=== PATIENT | male | born 1950 | race Hispanic/Latino ===

== ENCOUNTER 2025-01-28 06:50 | Observation (INO) | payer OTHER ==
[2025-01-26 11:26] LABS: BASOPHILS # (AUTO) 0.08 K/uL (0.00-0.20); BASOPHILS % (AUTO) 0.9 % (0.0-5.0); EOSINOPHILS # (AUTO) 0.52 K/uL (0.00-0.70); EOSINOPHILS % (AUTO) 5.9 % (0.0-8.0); HEMATOCRIT 39.5 % (42-54); IMMATURE GRANULOCYTE ABSOLUTE 0.04 K/uL (0-1); LYMPHOCYTES # (AUTO) 2.1 K/uL (1.0-4.8); LYMPHOCYTES % (AUTO) 23.8 % (21.0-51.0); MEAN CORPUSCULAR HEMOGLOBIN 33.2 pg (27.0-33.0); MEAN CORPUSCULAR HGB CONC 35.4 g/dL (32.0-36.0); MEAN CORPUSCULAR VOLUME 93.6 fL (79-99); MONOCYTES # (AUTO) 0.5 K/uL (0.1-1.0); MONOCYTES % (AUTO) 6.1 % (3.0-13.0); NEUTROPHILS # (AUTO) 5.6 K/uL (1.8-7.7); NEUTROPHILS % (AUTO) 62.8 % (40.0-77.0); PLATELET COUNT (AUTO) 168 K/uL (130-400); RED BLOOD CELL COUNT(AUTO) 4.22 MIL/uL (4.50-6.20); RED CELL DISTRIBUTION WIDTH 12.8 % (11.0-15.5); WHITE BLOOD COUNT (AUTO) 8.9 K/uL (4.8-10.8)
[2025-01-26 11:33] LABS: APPEARANCE,URINE CLEAR (CLEAR); BILIRUBIN,URINE NEGATIVE (NEGATIVE); COLOR,URINE LIGHT-YELLOW (YELLOW); GLUCOSE, URINE (UA) NEGATIVE (NEGATIVE); KETONES,URINE NEGATIVE (NEGATIVE); LEUKOCYTE ESTERASE ,URINE NEGATIVE Leu/uL (NEGATIVE); NITRATE,URINE NEGATIVE (NEGATIVE); OCCULT BLOOD,URINE NEGATIVE (NEGATIVE); PROTEIN,URINE NEGATIVE (NEGATIVE); UROBILINOGEN,URINE 0.2 mg/dL (0.2-1.0)
[2025-01-26 11:35] LABS: ADD UA MICROSCOPIC NO
--- NOTE | 2025-01-26 11:40 | NUR ---
preop bari rt instructed on incentive spirometry
[2025-01-26 11:43] LABS: INR 1.01 (0.85-1.15); PROTHROMBIN TIME 10.7 SEC (9.6-11.6)
[2025-01-26 11:48] LABS: CREATININE 1.6 mg/dL (0.5-1.3); POTASSIUM 4.9 mmol/L (3.5-5.1)
[2025-01-26 12:12] VITALS: BP 213/83; PULSE 50; RESP 18; TEMP 97.2
--- NOTE | 2025-01-27 16:36 | NUR ---
report dr ken informed of bnp results. received instructions to see if ok to proceed with fall internship or flight control tower operator. as per dr pink ok to proceed but to consult him in am. dr ken notified and consult ordered
--- NOTE | 2025-01-27 18:42 | NUR ---
[facility] CM SPOKE TO PT OVER THE PHONE THIS EVENING, INITIAL ASSESSMENT DONE. PATIENT IS INDEPENDENT PRIOR TO SURGERY, LIVES AT HOME WITH HIS . VERIFIED HOME ADDRESS: [facility] [place] [address]. PATIENT ALREADY HAS A WALKER, BEDSIDE COMMODE, SHOWER CHAIR. DENIES ANY OTHER EQUIPMENT/SERVICES. FEELS SAFE TO GO BACK HOME, STILL DRIVE, AND SON ABLE TO ASSIST WITH TRANSPORTATION AND NEEDS NECESSARY. DISCUSSED POSSIBLE HOME W/HOME HEALTH FOR PT VS REHAB AT [facility], PT VERBALIZED HOME HEALTH WAS DISCUSSED, GIVEN IN [employer], PT VERBALIZED HE'LL TALK TO HIS FIRST AND WILL DECIDE AFTER SURGERY. PT DECLINED TO GIVE CONSENT FOR NOW, CM TO FOLLOW UP WITH PT AFTER SURGERY. [facility] HOME W/HH ONCE APPROVED. CM TO CONTINUE TO FOLLOW UP. Addendum: 01/27/25 at 1845 by KEDAR RAMOS LVN CM Amended: Links added.
[2025-01-28] VITALS (34 sets, daily range): BP systolic 116–159; BP diastolic 44–87; PULSE 50–78; RESP 14–19; TEMP 96.3–98.1; O2SAT 96–99
[~2025-01-28] VITALS: Ht 167.6 cm; Wt 75.7 kg
[~2025-01-28 06:50] MED LIST: ASPI-1443 PO; ATOR40TA71 PO; CHOL100040 PO; FOLI0.8T22 PO; LOSA100T59 PO; METF-444 PO
--- NOTE | 2025-01-28 07:40 | NUR ---
SPOKE TO DR. MASTERS REGARDING CONSULT FOR ELEVATED BNP. INFORMED THAT PATIENT IS ASYMPTOMATIC, DENIES SHORTNESS OF BREATH. PER MD, OK TO PROCEED WITH SURGERY. WILL SEE PATIENT LATER TODAY.
[2025-01-28] MEDS ORDERED: ceFAZolin SODIUM 1 GM VIAL ONE (07:42)
[2025-01-28] MEDS ORDERED: VANCOMYCIN 500MG+NS 100ML 100 ML IV ONE (07:42)
[2025-01-28] MEDS ORDERED: TRANEXAMIC ACID 1000MG/10ML ONE (07:42)
[2025-01-28] MEDS: 0.9%NACL 1000ML 1,000 ML IV ONE (07:54)
[2025-01-28] MEDS: ceFAZolin SODIUM 2 GM VIAL ONE (07:55)
[2025-01-28] MEDS ORDERED: FENTanyl CITRate PF 50 MCG/1 ML 2ML VIAL ONE ×3 (10:05→13:20)
[2025-01-28] MEDS ORDERED: MIDAZOLAM HCL 1 MG/ML 2ML VIAL ONE (10:05)
[2025-01-28] MEDS ORDERED: proPOFol 10 MG/ML 20ML VIAL IV ONE (10:06)
[2025-01-28] MEDS ORDERED: rocuRONium bROMide 10MG/1ML 5ML VL ONE (10:06)
[2025-01-28] MEDS ORDERED: phenylEPHRINE HCL 10 MG/ML 1ML VIAL IV ONE (11:20)
[2025-01-28] MEDS: VANCOMYCIN 500MG VIAL IJ ONE (11:35)
[2025-01-28] MEDS: acetaMINOPHEN 100 ML ONE (13:06)
[2025-01-28] MEDS ORDERED: PoTASSium chloRIDE 20MEQ ER 20 MEQ ERTAB PO PRN (13:30)
[2025-01-28] MEDS ORDERED: CYCLOBENZAPRINE HCL 10 MG TABLET PO PRN (13:30)
[2025-01-28] MEDS ORDERED: TEMAZepam 15 MG CAPSULE PO PRN (13:30)
[2025-01-28] MEDS ORDERED: PoTASSium chloRIDE 20MEQ/100ML 100 ML IV PRN (13:30)
[2025-01-28] MEDS ORDERED: ondanSETRON 4MG INJ IVP PRN (13:30)
[2025-01-28] MEDS ORDERED: DiphenhydrAMINE HCL 50 MG/ML VIAL IVP PRN (13:30)
[2025-01-28] MEDS ORDERED: CALCIUM CARB 500MG PO PRN (13:30)
[2025-01-28] MEDS ORDERED: OXYcodONE HCL 5 MG TAB PO PRN (13:30)
[2025-01-28] MEDS ORDERED: PoTASSium chl 10% ELIXIR 20MEQ 20 MEQ/15 ML UDCUP PO PRN (13:30)
[2025-01-28] MEDS ORDERED: FERROUS FUMARATE 324 MG TABLET PO PRN (13:30)
[2025-01-28] MEDS: acetaMINOPHEN 500 MG TABLET PO SCH (13:30)
--- NOTE | 2025-01-28 15:58 | OP ---
Operative Note: DATE OF PROCEDURE: 01/28/25 SURGEON: CHACE CRYSTAL MD OBSTETRICS GYN PHYSICIAN: [Beata Castillo CFA] ANESTHESIA: [General anesthesia plus regional block] ANESTHESIOLOGIST/WARRANTY ADMINISTRATOR: [Aki Blanco CRNA] PREOPERATIVE DIAGNOSIS: [Left knee osteoarthritis, knee flexion contracture] POSTOPERATIVE DIAGNOSIS: [Same] IMPLANTS: [Biomet vanguard. Femur size 70 left PS. Tibia size 79 fixed cruciate. Tibial liner size 79/83 x 10 PS. Patella size 31 x 8 asymmetric.] PROCEDURE: [Left total knee arthroplasty] ESTIMATED BLOOD LOSS: [100 mL] INDICATIONS: [The patient is a 74-year-old male with a history of pain to the left knee secondary to osteoarthritis. The patient also has a flexion contracture. The patient has been treated conservatively and is brought to the operating room for a left total knee arthroplasty. The patient understood the need for the procedure, risks involved, benefits and possible complications and agreed to sign the consent form] DESCRIPTION OF PROCEDURE: [After adequate general anesthesia was achieved and regional block obtained the left lower extremity was prepped and draped in the usual manner previous placement of the tourniquet in the proximal thigh. The extremity was then elevated and exsanguinated with an Esmarch bandage and the tourniquet inflated to 250 mmHg the Esmarch band been then removed. With the knee in flexion a longitudinal incision was then made in the anterior aspect through the skin followed by dissection of the subcutaneous tissue. A bone infusion trocar was then inserted just medial to the tibial tuberosity into the metaphysis and a solution of vancomycin mixed with saline solution was then injected into the bone. A paramedian approach was then made with the Bovie cautery cutting through the quadriceps tendon, medial patellar retinaculum and patellar tendon retinaculum. The retropatellar tendon fat was then excised and the soft tissue elements of the tibia were elevated subperiosteally and retractors were applied medially and laterally . The anterior and posterior cruciate ligaments were resected. With the use of a drill a starting hole was made in the distal femur entering the intramedullary canal and then after removal of the drill an intramedullary guide was inserted with a 5 degree valgus block that touched the distal femur and to this the distal femoral cutting guide was then applied anteriorly and was secured to the distal femur with the use of pins. The intramedullary guide was then removed and with the use of the oscillating saw we proceeded to resect the distal femur removing the fragments and the guide. The femoral sizer was then applied distally and drill holes were made removing the sizer and the 4-in-1 cutting block was then inserted and the anterior, posterior and chamfer cuts were made removing the fragments and the block. The posterior cruciate ligament retractor was then inserted posterior to the tibia and this was brought forward proceeding then to apply the external tibial alignment guide and secured the proximal cutting guide to the tibia with the use of pins. With the use of the oscillating saw the proximal cut to the tibia tibia was made. The bone fragment was removed and the trial tibia plate was chosen. At this point the menisci were removed sharply and with the use of the curved osteotome the posterior osteophytes of the femur were removed. The PS cutting guide was then inserted and the intercondylar cut was made removing the fragment and the guide. The trial components were then inserted at the femur and tibia with a trial tibial liner bringing the knee into extension noticing that the patient had a very stable knee in flexion, extension and with valgus and varus stress. The knee was maintained in extension and the patella was then addressed proceeding to measure its thickness and then with the use of the oscillating saw we removed 8 mm from the articular surface and restored the height with application of a trial component after 3 peg holes were made. The patellofemoral ligament was removed and then the patellofemoral tracking was checked noticing to be normal. At this moment all the components were removed, the tibia after the metaphyseal defect was created and while cement was being mixed on the back table we proceeded to irrigate the joint with antibiotic solution and then cover the entry to the femoral canal with a bone plug. Once the cement was ready we proceeded to apply it first to the tibia surface inserting the final component and then to the femoral surface and inserted the final component removing the excess cement and then applying a trial liner bringing the knee into extension for compression. Then we proceeded to irrigate the patella surface and dried it applying then bone cement and the final patellar component was inserted and was secured with application of a clamp. The joint was irrigated with a warm diluted Betadine solution while the cement dried followed by irrigation with antibiotic solution. The trial liner was removed as well as the patellar clamp and we proceeded then to irrigate the posterior aspect of the joint to remove all the remaining debris and the final tibial liner was inserted and locked against the tibia. The range of motion was checked and noticed to be adequate with full extension and flexion, no laxity in valgus or varus stress and with adequate patellofemoral tracking. The patient had no anterior or posterior drawer. After further irrigation the wound the tourniquet was deflated and hemostasis was obtained. The wound was then closed with approximation of the quadriceps tendon, patellar retinaculum and patellar tendon retinaculum with #1 Vicryl crossed stitches alternating with #1 Ethibond stitches, and closure of the subcutaneous tissue with 2-0 Monocryl inverted stitches and the skin was closed with 3-0 Monocryl subcuticularly. The wound was covered with a suction dressing followed by application of an Marcelino bandage for compression and the drapes were then removed transferring the patient to the hospital bed and taken to recovery room for follow-up by anesthesia. There were no complications during the procedure.] CHACE CRYSTAL MD Jan 28, 2025 15:58
--- NOTE | 2025-01-28 16:12 | NUR ---
PATIENT REPORT RECEIVED PATIENT FROM PACU NURSE DIMAS. PATIENT AAOx3. VITALS STABLE, IN NO APPARENT DISTRESS. PATIENT REPORTS NO PAIN AT THIS TIME. RESPIRATORY THERAPIST NOTIFIED. PHYSICAL THERAPY AWARE.
[2025-01-28] MEDS: INSULIN humuLIN R 100 UNIT/ML 3ML SQ SCH (16:30)
[2025-01-28] MEDS: traMADol HCL 50 MG TABLET PO PRN (17:16)
[2025-01-28] MEDS: ceFAZolin SODIUM 2 GM VIAL IVP SCH (19:19)
[2025-01-28] MEDS: 0.9%NACL 1000ML 1,000 ML IV SCH (19:19)
[2025-01-28] MEDS: metFORmin HCL 500 MG TABLET PO SCH (20:04)
[2025-01-28] MEDS: Vitamin B Complex/Vit C/Folic Acid PO SCH (20:38)
[2025-01-28] MEDS: ASPIRIN 81MG CHEW TAB PO SCH (20:40)
[2025-01-28] MEDS ORDERED: ASPIRIN 81MG CHEW TAB PO SCH (21:00)
[2025-01-28] MEDS ORDERED: NON-FORMULARY MEDICATION 1 EACH (Folic Acid/Vitamin B Comp W-C (Rena-Vite Tablet) 0.8 MG) PO SCH (21:00)
[2025-01-29] VITALS: BP 149/76; PULSE 66; RESP 20; TEMP 97.9
[2025-01-29 03:59] LABS: BASOPHILS # (AUTO) 0.01 K/uL (0.00-0.20); BASOPHILS % (AUTO) 0.1 % (0.0-5.0); HEMATOCRIT 37.1 % (42-54); IMMATURE GRANULOCYTE ABSOLUTE 0.03 K/uL (0-1); LYMPHOCYTES # (AUTO) 0.9 K/uL (1.0-4.8); LYMPHOCYTES % (AUTO) 8.5 % (21.0-51.0); MEAN CORPUSCULAR HEMOGLOBIN 32.9 pg (27.0-33.0); MEAN CORPUSCULAR HGB CONC 34.5 g/dL (32.0-36.0); MEAN CORPUSCULAR VOLUME 95.4 fL (79-99); MONOCYTES # (AUTO) 0.7 K/uL (0.1-1.0); MONOCYTES % (AUTO) 6.5 % (3.0-13.0); NEUTROPHILS # (AUTO) 8.8 K/uL (1.8-7.7); NEUTROPHILS % (AUTO) 84.6 % (40.0-77.0); PLATELET COUNT (AUTO) 160 K/uL (130-400); RED BLOOD CELL COUNT(AUTO) 3.89 MIL/uL (4.50-6.20); RED CELL DISTRIBUTION WIDTH 12.7 % (11.0-15.5); WHITE BLOOD COUNT (AUTO) 10.4 K/uL (4.8-10.8)
[2025-01-29 04:00] VITALS: BP 150/78; PULSE 70; RESP 20; TEMP 97.8
[2025-01-29 04:27] LABS: ALBUMIN 3.2 g/dL (3.5-5.0); BILIRUBIN,TOTAL 0.8 mg/dL (0.2-1.0); CREATININE 1.9 mg/dL (0.5-1.3); MAGNESIUM 1.7 mg/dL (1.80-2.40); PHOSPHORUS 3.5 mg/dL (2.5-4.9); POTASSIUM 4.7 mmol/L (3.5-5.1); TOTAL PROTEIN, SERUM 5.9 g/dL (6.0-8.3)
[2025-01-29] MEDS: ketOROlac 15MG/ML VIAL (15MG/ML) IV PRN (04:31)
[2025-01-29 08:00] VITALS: BP 125/69; PULSE 62; RESP 18; TEMP 97.8; O2SAT 96
--- NOTE | 2025-01-29 08:12 | CONS ---
NEPHROLOGY CONSULTATION REASON FOR CONSULTATION: Renal dysfunction, elevated BNP. HISTORY OF PRESENT ILLNESS: This patient has multiple medical problems. The patient has underlying chronic kidney disease. The patient came for preop examination and found to have elevated BNP, elevated BUN and creatinine were also present. The patient is now admitted after the surgery and I have seen him. No other associated symptoms. The patient is having underlying type 2 diabetes, hypertension, peripheral vascular disease, and coronary artery disease. The patient now has undergone left knee replacement. No other associated symptoms. No other aggravating or relieving factor. PAST MEDICAL HISTORY: Diabetes, hypertension, hyperlipidemia, peripheral vascular disease, coronary artery disease with underlying osteoarthritis now. PAST SURGICAL HISTORY: Coronary stenting, cholecystectomy and now left knee replacement. SOCIAL HISTORY: No smoking, alcohol, or drug abuse. FAMILY HISTORY: Not relevant to present contacts. ALLERGIES: None reported to me. REVIEW OF SYSTEMS: CONSTITUTIONAL: Generalized weakness. No fever, chills or rigors. HEENT: With no headache, oral ulcer, sore throat, or difficulty swallowing. RESPIRATORY: With no cough, expectoration, hemoptysis or pleuritic pain. CARDIOVASCULAR: Shortness of breath. No orthopnea or PND. GASTROINTESTINAL: Negative for nausea, vomiting or diarrhea. GENITOURINARY: Negative for hematuria. DERMATOLOGIC: No rashes, pruritus or skin lesions. ENDOCRINE: No polyuria, polydipsia or polyphagia. PSYCHIATRIC: Negative for anxiety, depression, hallucinations. NEUROLOGIC: No seizures or syncope. Other systemic review is unchanged. PHYSICAL EXAMINATION: GENERAL: Pale, no other distress. VITAL SIGNS: Blood pressure is 159/69, pulse 65, respiratory rate is 16. HEENT: Head is atraumatic and normocephalic. Pupils are round and reactive. Sclerae anicteric. Conjunctiva not pale. Oral mucosa is not dry. NECK: Supple. No masses or bruits. Thyroid is palpable. Neck has no bruits. CHEST: Shows equal thoracic percussion, note being resonant in all areas. CARDIAC: Regular rhythm. No rubs. No S3. No S4. No parasternal heave. ABDOMEN: No guarding or tenderness. Bowel sounds normoactive. No free fluid. BACK: No tenderness or back deformities. NEUROLOGIC: Awake, alert, nonfocal. LABORATORY DATA: Postoperative labs have shown creatinine elevated at 1.6, BUN of 25, elevated BNP of 1087. The patient has urine report reviewed and has shown no significant proteinuria. Coagulation parameters were reviewed. IMAGING STUDIES: Personally reviewed. Microbiology data reviewed. PROBLEMS: Include, * Chronic kidney disease, stage IIIB. * Elevated BNP suggestive of mild fluid overload. * Underlying diabetic nephropathy. * Underlying coronary artery disease with previous stenting. * Hyperlipidemia. * Hypertension. * Multiple history of anemia. PLAN AND RECOMMENDATIONS: * I have reviewed the labs, x-rays personally. * Continued monitoring of renal function and electrolytes. * BNP level may be monitored. The patient is not aggressively short of breath at this time, so we will be monitoring without diuretics. * Insulin coverage for diabetes. * I discussed with other team members and surgical team. * Please avoid contrast and nonsteroidal drug. * Follow up on blood pressure, sugar, electrolytes, and overall status. * Followup labs ordered, CBC, CMP, and phosphorus. * The patient will have IV Dilaudid given for pain 0.5 q. 6 hours. Avoid Demerol. We will follow up on blood pressure, electrolyte, renal function and overall status. Intake, output, weight will be monitored. Renee-Luís , vitamin D to continue. The patient will need followup anemia, renal function, electrolytes, and overall status. Condition remain guarded. Thank you for this patient. TID: [id number] RECEIPT: [id number]
[2025-01-29] MEDS: atorVAStatin 40 MG TABLET PO SCH (08:41)
[2025-01-29] MEDS: GABApentin 100 MG CAPSULE PO SCH (08:42)
[2025-01-29] MEDS: tamSULOsin HCL 0.4 MG CAP.ER.24H PO SCH (08:42)
[2025-01-29] MEDS: LoSARTan 100 MG TABLET PO SCH (08:42)
[2025-01-29] MEDS: FAMOTIDINE 20MG TAB PO SCH (08:42)
[2025-01-29] MEDS: polyETHYLene GLYCol 3350 17 GM POWD.PACK PO SCH (08:43)
[2025-01-29] MEDS: OXYcodONE HCL 5 MG TAB PO PRN (08:43)
[2025-01-29] MEDS: Vitamin D3 25 MCG PO SCH (08:45)
[2025-01-29] MEDS ORDERED: ASPIRIN 81 MG EC TAB PO SCH (09:00)
--- NOTE | 2025-01-29 11:24 | PN ---
NEPHROLOGY PROGRESS NOTE Date/Time Patient Seen: Jan 29, 2025 SUBJECTIVE: This patient has multiple medical problems. The patient has underlying chronic kidney disease. The patient came for preop examination and found to have elevated BNP, elevated BUN and creatinine were also present. The patient is now admitted after the surgery No other associated symptoms. The patient is having underlying type 2 diabetes, hypertension, peripheral vascular disease, and coronary artery disease. The patient now has undergone left knee replacement. No other associated symptoms. No other aggravating or relieving factor. Case management coordinating home health REVIEW OF SYSTEMS: GENERAL: Negative for any nausea, vomiting, fevers, chills, or weight loss. NEUROLOGIC: Negative for any blurry vision, blind spots, double vision, facial asymmetry, dysphagia, dysarthria, hemiparesis, hemisensory deficits, vertigo, ataxia. HEENT: Negative for any head trauma, neck trauma, neck stiffness, photophobia, phonophobia, sinusitis, rhinitis. CARDIAC: Negative for any chest pain, dyspnea on exertion, paroxysmal nocturnal dyspnea, peripheral edema. PULMONARY: Negative for any shortness of breath, wheezing, COPD, or TB exposure. GASTROINTESTINAL: Negative for any abdominal pain, nausea, vomiting, bright red blood per rectum, melena. GENITOURINARY: Negative for any dysuria, hematuria, incontinence. INTEGUMENTARY: Negative for any rashes, cuts, insect bites. RHEUMATOLOGIC: Negative for any joint pains, photosensitive rashes, history of vasculitis or kidney problems. HEMATOLOGIC: Negative for any abnormal bruising, frequent infections or bleeding. Vital Signs (last 8hr) Date Time Temp Pulse Resp B/P (MAP) Pulse Ox O2 Delivery O2 Flow Rate FiO2 01/29/25 08:00 96 Room Air* 0 21 01/29/25 08:00 97.9 62 18 125/69 96 Room Air 01/29/25 04:00 97.9 70 20 150/78 99 Room Air PHYSICAL EXAM: GENERAL: Alert and oriented x 3. No acute distress. Well-nourished. EYES: EOMI. Anicteric. HENT: Moist mucous membranes. No scleral icterus. No cervical lymphadenopathy. LUNGS: Clear to auscultation bilaterally. No accessory muscle use. CARDIOVASCULAR: Regular rate and rhythm. No murmur. No JVD. ABDOMEN: Soft, non-tender and non-distended. No palpable masses. EXTREMITIES: No edema. Non-tender. SKIN: No rashes or lesions. Warm. NEUROLOGIC: No focal neurological deficits. CN II-XII grossly intact, but not individually tested. PSYCHIATRIC: Cooperative. Appropriate mood and affect. Current Medications Medications (Trade) Dose Ordered Sig/Agata Route PRN Reason Start Time Stop Time Status Last Admin Dose Admin Acetaminophen (TYLenol 500MG TAB) 1,000 mg Q8H PO 01/28/25 13:30 02/27/25 13:29 01/28/25 20:42 1,000 MG Aspirin (Aspirin 81mg Chew Tab) 81 mg BID PO 01/28/25 21:00 01/28/25 20:00 DC Aspirin (Aspirin 81mg Chew Tab) 81 mg BID PO 01/28/25 21:00 02/27/25 20:59 01/29/25 08:42 81 MG Aspirin (Aspirin 81mg Ec Tab) 81 mg DAILY PO 01/29/25 09:00 01/28/25 20:01 DC Atorvastatin Calcium (LIPItor 40MG) 40 mg AM PO 01/29/25 09:00 02/28/25 08:59 01/29/25 08:41 40 MG Bisacodyl (DulcoLAX) 10 mg DAILY PRN RC CONSTIPATION 01/31/25 13:30 03/02/25 13:29 Calcium Carbonate (Oyster Shell Ca 500mg Tab) 500 mg Q12H PRN PO GIVE IF SERUM CA LESS THAN 8 01/28/25 13:30 02/27/25 13:29 Cefazolin Sodium (Ancef) 2 gm Q8H IVP 01/28/25 18:30 01/29/25 02:31 DC 01/29/25 02:08 2 GM Cyclobenzaprine HCl (Cyclobenzaprine HCl) 5 mg Q8H PRN PO MUSCLE SPASMS 01/28/25 13:30 02/27/25 13:29 Diphenhydramine HCl (BENAdryl INJ) 25 mg Q6H PRN IVP ITCHING 01/28/25 13:30 02/27/25 13:29 Famotidine (Pepcid 20mg Tab) 20 mg QODAY PO 01/29/25 09:00 02/28/25 08:59 01/29/25 08:42 20 MG Ferrous Fumarate (Hemocyte) 324 mg DAILY PRN PO IF HEMOGLOBIN LESS THAN 9 01/28/25 13:30 02/27/25 13:29 Gabapentin (NEURontin 100 mg CAP) 100 mg DAILY PO 01/29/25 09:00 02/28/25 08:59 01/29/25 08:42 100 MG Home Med (Home Medication) Vitamin D3 25 MCG DAILY PO 01/29/25 09:00 02/28/25 08:59 Insulin Human Regular (humuLIN R 100 UNIT/ML 3ML) INSULIN SLIDING SCAL... ACHS SQ 01/28/25 16:30 02/27/25 16:29 Ketorolac Tromethamine (toRADol) 15 mg Q6H PRN IV BREAKTHROUGH PAIN 01/28/25 13:30 02/02/25 13:29 01/29/25 04:31 15 MG Losartan Potassium (CozAAR 100MG TAB) 100 mg AM PO 01/29/25 09:00 02/28/25 08:59 01/29/25 08:42 100 MG Metformin HCl (glucoPHAGE) 500 mg BID PO 01/28/25 21:00 02/27/25 20:59 01/29/25 08:42 500 MG Miscellaneous Medication (Folic Acid/ Vitamin B Comp W-C (Renee-Luís Tablet)) 0.8 mg HS PO 01/28/25 21:00 01/28/25 20:04 DC Ondansetron HCl (zoFRAN 4MG INJ) 4 mg Q6H PRN IVP NAUSEA/VOMITING 01/28/25 13:30 02/27/25 13:29 Oxycodone HCl (ROXicoDONE) 5 mg Q4H PRN PO MODERATE PAIN (4-6) 01/28/25 13:30 02/04/25 13:29 Oxycodone HCl (ROXicoDONE) 10 mg Q4H PRN PO SEVERE PAIN (7-10) 01/28/25 13:30 02/04/25 13:29 01/29/25 08:43 10 MG Polyethylene Glycol (MIRalax 3350 17 GM POWD.PACK) 17 gm DAILY PO 01/29/25 09:00 02/28/25 08:59 01/29/25 08:43 17 GM Potassium Chloride 100 ml @ 100 mls/hr AD PRN IV POTASSIUM PROTOCOL 01/28/25 13:30 02/27/25 13:29 Potassium Chloride (K-Dur/Klor-Con 20meq) 20 meq AD PRN PO POTASSIUM PROTOCOL 01/28/25 13:30 02/27/25 13:29 Potassium Chloride (KCl 10% Elixir 20meq/15ml) 20 meq AD PRN PO POTASSIUM PROTOCOL 01/28/25 13:30 02/27/25 13:29 Sodium Chloride 1,000 ml @ 100 mls/hr Q10H IV 01/28/25 13:30 01/29/25 13:29 01/28/25 19:19 100 MLS/HR Tamsulosin HCl (FloMAX) 0.4 mg DAILY PO 01/29/25 09:00 02/28/25 08:59 01/29/25 08:42 0.4 MG Temazepam (restORIL 15 MG CAP) 15 mg HS PRN PO INSOMNIA/SLEEP 01/28/25 13:30 02/27/25 13:29 Tramadol HCl (UltRAM) 50 mg Q6H PRN PO MILD PAIN (1-3) 01/28/25 13:30 02/02/25 13:29 01/28/25 17:16 50 MG Vitamin B Complex/ Vit C/Folic Acid (Nephrovite Tablet) 1 cap HS PO 01/28/25 21:00 02/27/25 20:59 01/28/25 20:38 1 CAP LABORATORY: [ ] Hematology Labs: Test 01/29/25 03:13 Range/Units White Blood Count 10.4 4.8-10.8 K/uL Red Blood Count 3.89 L 4.50-6.20 MIL/uL Hemoglobin 12.8 L 14.0-18.0 g/dL Hematocrit 37.1 L 42-54 % Mean Corpuscular Volume 95.4 79-99 fL Mean Corpuscular Hemoglobin 32.9 27.0-33.0 pg Mean Corpuscular Hemoglobin Concent 34.5 32.0-36.0 g/dL Red Cell Distribution Width 12.7 11.0-15.5 % Platelet Count 160 130-400 K/uL Mean Platelet Volume 11.4 H 7.5-10.5 fL Immature Granulocyte % (Auto) 0.3 0-1 % Neutrophils (%) (Auto) 84.6 H 40.0-77.0 % Lymphocytes (%) (Auto) 8.5 L 21.0-51.0 % Monocytes (%) (Auto) 6.5 3.0-13.0 % Eosinophils (%) (Auto) 0.0 0.0-8.0 % Basophils (%) (Auto) 0.1 0.0-5.0 % Neutrophils # (Auto) 8.8 H 1.8-7.7 K/uL Lymphocytes # (Auto) 0.9 L 1.0-4.8 K/uL Monocytes # (Auto) 0.7 0.1-1.0 K/uL Eosinophils # (Auto) 0.00 0.00-0.70 K/uL Basophils # (Auto) 0.01 0.00-0.20 K/uL Absolute Immature Granulocyte (auto 0.03 0-1 K/uL Nucleated Red Blood Cells 0.0 0.0-0.19 % White Cell Morphology Comment See comments Chemistry Labs: Test 01/29/25 10:44 01/29/25 03:13 Range/Units Whole Blood Glucose 128 H 70-110 MG/DL Sodium Level 138 136-145 mmol/L Potassium Level 4.7 3.5-5.1 mmol/L Chloride Level 108 101-111 mmol/L Carbon Dioxide Level 24 21-32 mmol/L Blood Urea Nitrogen 31 H 7-18 mg/dL Creatinine 1.9 H 0.5-1.3 mg/dL Glomerular Filtration Rate Calc 37 >90 mL/min Random Glucose 133 H 70-105 mg/dL Total Calcium 8.6 8.5-10.1 mg/dL Phosphorus Level 3.5 2.5-4.9 mg/dL Magnesium Level 1.70 L 1.80-2.40 mg/dL Total Bilirubin 0.8 0.2-1.0 mg/dL Aspartate Amino Transf (AST/SGOT) 24 10-37 U/L Alanine Aminotransferase (ALT/SGPT) 18 12-78 U/L Alkaline Phosphatase 110 50-136 U/L Total Protein 5.9 L 6.0-8.3 g/dL Albumin 3.2 L 3.5-5.0 g/dL DIAGNOSTICS / RADIOLOGY: ASSESSMENT: Chronic kidney disease, stage IIIB. Elevated BNP suggestive of mild fluid overload. Underlying diabetic nephropathy. Underlying coronary artery disease with previous stenting. Hyperlipidemia. Hypertension. Multiple history of anemia. PLAN: Labs, diagnostic, radiologic exams reviewed and interpreted by myself and supervising physician. We have reviewed external records in detail Require close monitoring of renal function and electrolytes Order BMP in am BiPAP as necessary, for respiratory distress Monitor blood pressure adjust medication doses as needed Avoid hypotensive episodes May use Dilaudid 0.5 mg IV every 6 hours as needed for severe pain Monitor blood sugars Strict intake, output, and daily weight should be monitored Please renally adjust medications Avoid nephrotoxic and nonsteroidal drugs Avoid contrast if possible Will continue to monitor renal function, anemia, electrolytes Treatment plan discussed with patient Questions were answered We have discussed with the other team physicians in detail about the care plan We will continue to monitor the patient closely ATTESTATION BY PHYSICIAN I have seen and examined the patient. I reviewed the documentation, medical decision making, and treatment plan as noted by the mid-level provider above. I agree with the findings and plan of care. HEMA MASTERS MD, [facility] Jan 29, 2025 11:24
[2025-01-29 11:31] VITALS: BP 134/68; PULSE 59; RESP 16; TEMP 97.6
--- NOTE | 2025-01-29 13:00 | NUR ---
ORTHO COORDINATOR: TEACHING REGARDING DVT AND PNEUMONIA PREVENTION, PAIN EXPECTATIONS AND PAIN MANAGEMENT. PATIENT IN BED, HAS SHOWERED AND IS IN STREET CLOTHES, AT BEDSIDE. ANGIE DRESSING INTACT, SILVER DOLLAR SIZE BLOOD ON DRESSING. PUMP FUNCTIONING, GREEN LIGHT BLINKING. EDUCATION PROVIDED ON ANGIE DRESSING, SHOWERING AND ERRORS ON PUMP. QUESTIONS ANSWERED. DURING TEACHING, PATIENT FLEXING AND EXTENDING BILATERAL FEET. PATIENT RETURN DEMONSTRATED PROPER USE OF INCENTIVE SPIROMETER AND VERBALIZED PROPER FREQUENCY OF USE. B SCD SLEEVES AND MACHINE IN ROOM. EDUCATION PROVIDED SCD'S WERE TO BE UTILIZED AT NIGHT WHILE IN HOSPITAL. PATIENT AND VERBALIZED UNDERSTANDING. PATIENT INTENDS TO DISCHARGE HOME WITH HOME HEALTH, NEXT STEPS REVIEWED. PAIN CONTROLLED, REVIEWED PAIN MEDICATIONS ONCE DISCHARGED. ENCOURAGED PATIENT TO CONTINUE PREMEDICATING PRIOR TO PHYSICAL THERAPY OR PERIODS OF ACTIVITY, USING INCENTIVE SPIROMETER AND PERFORMING FOOT FLEXION/EXTENSION EXERCISES. RATIONALE PROVIDED FOR ALL. PATIENT AND VERBALIZED UNDERSTANDING. NO ADDITIONAL QUESTIONS OR CONCERNS AT THIS TIME.
--- NOTE | 2025-01-29 15:26 | PN ---
Postop day 1. Vital signs stable, afebrile. The patient has been doing well with vital signs as well as pain control. He did well with physical therapy today ambulating adequate amount of distance with the use of the walker. Awake, alert and oriented No respiratory distress or problems. The dressing is dry and cleaned with a one dry spot of blood. Adequately function suction system. Mild lower leg edema. Normal distal neurovascular exam Assessment: Status post left total knee arthroplasty. Plan: Patient has been accepted by home health. He feels comfortable leaving today and the discharge orders written, prescription sent to the pharmacy Vitals/Labs Vital Signs Date Time Temp Pulse Resp B/P (MAP) Pulse Ox O2 Delivery O2 Flow Rate FiO2 01/29/25 11:31 97.5 59 16 134/68 97 Room Air 01/29/25 08:00 0 21 Laboratory Tests 01/29/25 03:13 Medications Current Medications Cefazolin Sodium 2 gm STK-MED ONCE .ROUTE; Start 01/28/25 at 07:23; Stop 01/28/25 at 07:23; Status DC Sodium Chloride 1,000 ml @ As Directed STK-MED ONCE IV Last administered on 01/28/25at 07:54; Start 01/28/25 at 07:23; Stop 01/28/25 at 07:23; Status DC Tranexamic Acid 1,000 mg STK-MED ONCE .ROUTE; Start 01/28/25 at 07:42; Stop 01/28/25 at 07:42; Status DC Cefazolin Sodium 1 gm STK-MED ONCE .ROUTE; Start 01/28/25 at 07:42; Stop 01/28/25 at 07:42; Status DC Vancomycin HCl 100 ml @ As Directed STK-MED ONCE IV; Start 01/28/25 at 07:42; Stop 01/28/25 at 07:43; Status DC Midazolam HCl 2 mg STK-MED ONCE .ROUTE; Start 01/28/25 at 10:05; Stop 01/28/25 at 10:06; Status DC Fentanyl Citrate 100 mcg STK-MED ONCE .ROUTE; Start 01/28/25 at 10:05; Stop 01/28/25 at 10:06; Status DC Propofol 200 mg STK-MED ONCE IV; Start 01/28/25 at 10:06; Stop 01/28/25 at 10:06; Status DC Rocuronium [place] 50 mg STK-MED ONCE .ROUTE; Start 01/28/25 at 10:06; Stop 01/28/25 at 10:06; Status DC Phenylephrine HCl 10 mg STK-MED ONCE IV; Start 01/28/25 at 11:20; Stop 01/28/25 at 11:20; Status DC Vancomycin HCl 500 mg STK-MED ONCE IJ Last administered on 01/28/25at 11:35; Start 01/28/25 at 11:35; Stop 01/28/25 at 11:43; Status DC Cefazolin Sodium 3 gm STK-MED ONCE IVPB Last administered on 01/28/25at 11:35; Start 01/28/25 at 11:35; Stop 01/28/25 at 11:43; Status DC Cefazolin Sodium 2 gm STK-MED ONCE IVPB Last administered on 01/28/25at 11:05; Start 01/28/25 at 11:05; Stop 01/28/25 at 11:43; Status DC Fentanyl Citrate 100 mcg STK-MED ONCE .ROUTE; Start 01/28/25 at 11:51; Stop 01/28/25 at 11:51; Status DC Acetaminophen 100 ml @ As Directed STK-MED ONCE .ROUTE; Start 01/28/25 at 13:06; Stop 01/28/25 at 13:06; Status DC Sodium Chloride 1,000 ml @ 100 mls/hr Q10H IV Last administered on 01/28/25at 19:19; Start 01/28/25 at 13:30; Stop 01/29/25 at 13:29; Status DC Polyethylene Glycol 17 gm DAILY PO Last administered on 01/29/25at 08:43; Start 01/29/25 at 09:00; Stop 02/28/25 at 08:59 Bisacodyl 10 mg DAILY PRN RC; Start 01/31/25 at 13:30; Stop 03/02/25 at 13:29 Ketorolac Tromethamine 15 mg Q6H PRN IV Last administered on 01/29/25at 04:31; Start 01/28/25 at 13:30; Stop 02/02/25 at 13:29 Famotidine 20 mg QODAY PO Last administered on 01/29/25at 08:42; Start 01/29/25 at 09:00; Stop 02/28/25 at 08:59 Tamsulosin HCl 0.4 mg DAILY PO Last administered on 01/29/25at 08:42; Start 01/29/25 at 09:00; Stop 02/28/25 at 08:59 Ferrous Fumarate 324 mg DAILY PRN PO; Start 01/28/25 at 13:30; Stop 02/27/25 at 13:29 Temazepam 15 mg HS PRN PO; Start 01/28/25 at 13:30; Stop 02/27/25 at 13:29 Ondansetron HCl 4 mg Q6H PRN IVP; Start 01/28/25 at 13:30; Stop 02/27/25 at 13:29 Calcium Carbonate 500 mg Q12H PRN PO; Start 01/28/25 at 13:30; Stop 02/27/25 at 13:29 Diphenhydramine HCl 25 mg Q6H PRN IVP; Start 01/28/25 at 13:30; Stop 02/27/25 at 13:29 Insulin Human Regular INSULIN SLIDING SCAL... ACHS SQ; Start 01/28/25 at 16:30; Stop 02/27/25 at 16:29 Cefazolin Sodium 2 gm Q8H IVP Last administered on 01/29/25at 02:08; Start 01/28/25 at 18:30; Stop 01/29/25 at 02:31; Status DC Cyclobenzaprine HCl 5 mg Q8H PRN PO; Start 01/28/25 at 13:30; Stop 02/27/25 at 13:29 Gabapentin 100 mg DAILY PO Last administered on 01/29/25at 08:42; Start 01/29/25 at 09:00; Stop 02/28/25 at 08:59 Potassium Chloride 100 ml @ 100 mls/hr AD PRN IV; Start 01/28/25 at 13:30; Stop 02/27/25 at 13:29 Potassium Chloride 20 meq AD PRN PO; Start 01/28/25 at 13:30; Stop 02/27/25 at 13:29 Potassium Chloride 20 meq AD PRN PO; Start 01/28/25 at 13:30; Stop 02/27/25 at 13:29 Oxycodone HCl 5 mg Q4H PRN PO; Start 01/28/25 at 13:30; Stop 02/04/25 at 13:29 Oxycodone HCl 10 mg Q4H PRN PO Last administered on 01/29/25at 08:43; Start 01/28/25 at 13:30; Stop 02/04/25 at 13:29 Tramadol HCl 50 mg Q6H PRN PO Last administered on 01/29/25at 12:43; Start 01/28/25 at 13:30; Stop 02/02/25 at 13:29 Acetaminophen 1,000 mg Q8H PO Last administered on 01/29/25at 12:42; Start 01/28/25 at 13:30; Stop 02/27/25 at 13:29 Aspirin 81 mg BID PO; Start 01/28/25 at 21:00; Stop 01/28/25 at 20:00; Status DC Fentanyl Citrate 100 mcg STK-MED ONCE .ROUTE; Start 01/28/25 at 13:20; Stop 01/28/25 at 13:26; Status DC Aspirin 81 mg DAILY PO; Start 01/29/25 at 09:00; Stop 01/28/25 at 20:01; Status DC Atorvastatin Calcium 40 mg AM PO Last administered on 01/29/25at 08:41; Start 01/29/25 at 09:00; Stop 02/28/25 at 08:59 Losartan Potassium 100 mg AM PO Last administered on 01/29/25at 08:42; Start 01/29/25 at 09:00; Stop 02/28/25 at 08:59 Metformin HCl 500 mg BID PO Last administered on 01/29/25at 08:42; Start 01/28/25 at 21:00; Stop 02/27/25 at 20:59 Home Med Vitamin D3 25 MCG DAILY PO; Start 01/29/25 at 09:00; Stop 02/28/25 at 08:59 Miscellaneous Medication 0.8 mg HS PO; Start 01/28/25 at 21:00; Stop 01/28/25 at 20:04; Status DC Vitamin B Complex/ Vit C/Folic Acid 1 cap HS PO Last administered on 01/28/25at 20:38; Start 01/28/25 at 21:00; Stop 02/27/25 at 20:59 Aspirin 81 mg BID PO Last administered on 01/29/25at 08:42; Start 01/28/25 at 21:00; Stop 02/27/25 at 20:59 CHACE CRYSTAL MD Jan 29, 2025 15:26
[2025-01-29] MEDS ORDERED: OXYC-38 PO (15:34)
[2025-01-29] MEDS ORDERED: ASPI-1443 PO (15:34)
[2025-01-29 16:10] VITALS: BP 123/65; PULSE 71; RESP 18; TEMP 98.1
--- NOTE | 2025-01-29 18:20 | NUR ---
discharged educated patient on diet, activity, medications, opioid safety, follow up visits, signs and symptoms to report/return to ER. answered patient questions, patient and family understood. gave report to [facility], spoke to eric kaur RN, faxed orders over to agency.
[2025-01-31] MEDS ORDERED: BisaCODYL 10 MG SUPP.RECT RC PRN (13:30)
== END 2025-01-29 18:28 | disposition home or self-care (01) ==
LOC: DAH 06:50 → DAHIP 06:51 → 4AH 16:15
PROVIDERS: ADMIT Orthopaedic Surgery; ATTEND Orthopaedic Surgery
DX: M17.12 Unilateral primary osteoarthritis, left knee (principal); G89.18 Other acute postprocedural pain; M25.562 Pain in left knee; M24.562 Contracture, left knee; I25.10 Atherosclerotic heart disease of native coronary artery without angina pectoris; E78.5 Hyperlipidemia, unspecified; I12.9 Hypertensive chronic kidney disease with stage 1 through stage 4 chronic kidney disease, or unspecified chronic kidney disease; E11.22 Type 2 diabetes mellitus with diabetic chronic kidney disease; N18.32 Chronic kidney disease, stage 3b; E11.51 Type 2 diabetes mellitus with diabetic peripheral angiopathy without gangrene; Z95.5 Presence of coronary angioplasty implant and graft; Z79.899 Other long term (current) drug therapy; Z98.890 Other specified postprocedural states
CPT/HCPCS: 80048; 85025 ×2; 85610; 81003; 36415 ×2; 87641; 87086; 96365; 64447; 27447; 82948 ×6; 88311; 88304; 97161; 97116 ×3; 97530 ×6; 96366; 96375; 83735; 84100; 80053; G0378 ×29; A4223 ×2; A4600; A4663; J7030 ×2; A4649 ×3; J0690 ×6; J3010 ×3; J3490 ×2; J2250; J2704; J2371; J3370 ×2; A9272; A4930 ×2; C1713; C1776; A5120; A4215; A4222; A4221; A4216; J1885; 36430; 83880